=== PATIENT | male | born 1995 | race Caucasian/White ===

== ENCOUNTER 2017-10-25 14:22 | Emergency (ER) | payer BC ==
[~2017-10-25] VITALS: Ht 177.8 cm; Wt 67.0 kg
[2017-10-25 14:36] VITALS: BP 145/82; PULSE 86; TEMP 36.9; O2SAT 96; Ht 177.8 cm; Wt 67.0 kg
[2017-10-25] MEDS ORDERED: XYLOCAINE 1%/SOD BICARB 20 ML VIAL INFIL ONE (15:00)
--- NOTE | 2017-10-25 16:57 | EMERGENCY ROOM VISIT NOTE ---
ED Visit Note First contact with patient: 14:46 Chief complaint: Right little finger laceration HPI: This 22-year-old white male presents for evaluation of a laceration on the flexor surface of his right little finger. The patient was using a knife last night around 10 or 11 PM. He states the knife slipped and he actually cut his little finger. He did not seek treatment last night. His friends encouraged him to seek treatment today. Bleeding was controlled with pressure. He denies any numbness, tingling, or loss of motion. No other complaints. Tetanus is believed to be up-to-date. Pain is 2/10. Right-hand dominant. Supplemental sheet was reviewed and signed. Previous surgeries: Right fifth metacarpal ORIF 2014 Medical history: Significant for history of asthma and GERD Current Medications: None Allergies: NKDA Tetanus: Within 3 years Family History: Unremarkable. Parents are living. Social History: [employer] student. Unemployed. No tobacco use, positive EtOH use. Single. REVIEW OF SYSTEM: HEENT: No dizziness, visual problems, hearing loss, or tinnitus. There is no difficulty swallowing and no oral lesions are present. PULMONARY: No cough, shortness of breath, sputum production or hemoptysis. CARDIOVASCULAR: No chest pain, palpitations, shortness of breath or peripheral edema. GASTROINTESTINAL: No diarrhea, constipation, nausea, vomiting, or abdominal pain. GENITOURINARY: No dysuria, frequency, urgency or nocturia. NEUROLOGIC: No weakness, muscle tenderness, epilepsy or history of neurological problems. MUSCULOSKELETAL: No history of joint tenderness/swelling. SKIN: No rashes or lesions. PSYCHIATRIC: No history of depression or mental illness. ENDOCRINE: No history of diabetes, thyroid disorders, or abnormal hair growth. Physical Exam: Vitals: Afebrile. Reviewed and filed in patient's chart General: Well-developed, well-nourished, young white male, in no acute distress. No obvious discomfort. He is sitting on the bed. Alert and oriented. Smells strongly of stale alcohol. He has a paper towel wrapped around his little finger. Skin: Warm and dry with good turgor. No rashes. No ecchymosis or erythema. The patient is not diaphoretic. No abrasions. The patient has a 2 cm V-shaped laceration present on the flexor surface of his little finger. It is at the PIP crease. Minor oozing. He appears to have hair or clothing fibers in the wound. No purulent drainage. Musculoskeletal: Patient has intact motor function to his little finger. Strength is 5/5 for resisted flexion and extension. He has intact function for the FDS, FDP, and extensor tendons. Intact abduction and adduction. Neurologic: Gross sensation is intact across the little finger by soft touch. Capillary refill is equal to the other fingers. Impression: Right little finger 2 cm laceration Procedure: Informed oral consent was obtained for repair. Little finger was prepped with Betadine and draped with a sterile towel. Area was anesthetized using 5 mL 1% plain lidocaine in a digital block. Finger tourniquet was applied. Thorough inspection was performed. Patient has expose the flexor tendon sheath but there is no visible violation. All of the clothing fibers and hair particles were removed. Nonviable skin was trimmed using iris scissors. Wound was irrigated copiously using Betadine diluted with normal sterile saline under jet spray lavage. Wound was closed loosely using 4-0 nylon. Good wound edge approximation was achieved. Hemostasis was achieved. Plan: Patient was educated regarding today's findings. Conservative care measures were discussed. Cleanse the wound daily with soap and water and reapply a small amount of bacitracin. Ice and elevate intermittently as needed for discomfort. Tylenol and ibuprofen every 6 hours as needed for pain. Wound care handout was provided. Sutures out in 12 days. He may shower. Avoid soaking or swimming for two weeks. Return to the ER for any acute changes or signs of infection. potential for infection due to length of exposure was discussed at length. Wound was closed loosely on purpose. I do not suspect tendon violation at this point. Current/Historical Medications No Active Prescriptions or Reported Meds Allergies Coded Allergies: No Known Allergies (Unverified , 10/25/17) Vital Signs Date Time Temp Pulse Resp B/P (MAP) Pulse Ox O2 Delivery O2 Flow Rate FiO2 10/25/17 14:36 36.9 86 16 145/82 96 Departure Information Impression Primary Impression: Laceration of right little finger w/o foreign body w/o damage ... Dispostion Home / Self-Care Condition GOOD Prescriptions No Active Prescriptions or Reported Meds Referrals No Doctor, Assigned (PCP) Forms HOME CARE DOCUMENTATION FORM, Days to leave dressing on : 1 Clean wound with;: soap and water Number of times/day to clean wound: 2 Coat wound with: antibiotic ointment Suture removal in how many days: 12 MOTRIN USE, TYLENOL USE, WOUND CARE INSTRUCTIONS, IMPORTANT VISIT INFORMATION Patient Instructions My [facility] Additional Instructions Cleanse the wound daily with soap and water Avoid swimming or soaking for 2 weeks you may shower and wash your hands Tylenol and Motrin every 6 hours as needed for discomfort Sutures out in 12 days Return to the ED for any acute changes or signs of infection
== END 2017-10-25 15:35 | disposition home or self-care (01) ==
LOC: C.EDB 14:23 → C.EDD 15:35
DX: S61.216A Laceration without foreign body of right little finger without damage to nail, initial encounter (principal); W26.0XXA Contact with knife, initial encounter; Y92.9 Unspecified place or not applicable

== ENCOUNTER 2018-05-22 10:13 | Emergency (ER) | payer BC ==
[~2018-05-22] VITALS: Ht 175.3 cm; Wt 70.0 kg
[2018-05-22 10:25] VITALS: TEMP 36.6; Ht 175.3 cm; Wt 70.0 kg
--- NOTE | 2018-05-22 10:56 | DIAGNOSTIC IMAGING REPORT ---
RIGHT FOOT 3 VIEWS CLINICAL HISTORY: Right foot pain. Fall. FINDINGS: 3 views of the right foot are obtained. No prior studies are available for comparison at the time of dictation. The skeletal structures are well mineralized. There is a mildly distracted and angulated fracture through the distal shaft of the fifth metatarsal with overlying soft tissue edema. No additional fracture is identified. The joint spaces of the foot are maintained. IMPRESSION: There is a mildly distracted and angulated spiral fracture through the distal shaft of the fifth metatarsal. Electronically signed by: Vito Pedro M.D. 05/22/2018 10:55 AM Dictated Date/Time: 05/22/2018 10:54 AM
[2018-05-22] MEDS ORDERED: OXYC-737 PO (10:58)
[2018-05-22 11:11] VITALS: BP 132/76; PULSE 93; O2SAT 97
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
== END 2018-05-22 11:12 | disposition home or self-care (01) ==
LOC: C.EDB 10:14 → C.EDC 11:12
DX: S92.351A Displaced fracture of fifth metatarsal bone, right foot, initial encounter for closed fracture (principal); X50.9XXA Other and unspecified overexertion or strenuous movements or postures, initial encounter